=== PATIENT | female | born 1975 | race Caucasian/White ===

== ENCOUNTER 2020-11-05 14:05 | Observation (INO) | payer OTHER ==
[2020-11-05 16:37] LABS: Urine Blood Trace-intact (Negative); Urine Glucose Negative (Negative); Urine Protein Negative (Negative)
[2020-11-05] MEDS ORDERED: NA CHLORIDE 0.9% 500 ML ONE (16:46)
[2020-11-05] MEDS ORDERED: NA CHLORIDE 0.9% 1,000 ML ONE (16:46)
[2020-11-05] MEDS ORDERED: ONDANSETRON 4 MG/2 ML VIAL ONE (16:46)
[2020-11-05] MEDS ORDERED: MORPHINE 4 MG/ML SYR ONE (16:46)
[2020-11-05 17:38] LABS: Absolute Lymphocytes (CBC) 1.3 K/uL (0.7-4.9); Basophils % 0.9 % (0-1.3); Hematocrit 39.4 % (36.0-45.0); Lymphocytes % 20.5 % (15.3-44.8); MPV 8.2 fL (7.6-11.3); RBC Red Blood Cell Count 4.45 M/uL (3.86-4.86)
[2020-11-05 17:41] LABS: Protime INR 0.99
--- NOTE | 2020-11-05 17:41 | RAD REPORT ---
EXAM DESCRIPTION: US - Abdomen Exam Limited - 11/05/2020 4:55 pm CLINICAL HISTORY: ABD PAIN COMPARISON: Abdomen Pelvis W Contrast dated 10/27/2020bdomen Pelvis W Contrast dated 10/27/2020 FINDINGS: No gallstones, sludge or other abnormalities within the gallbladder lumen. There is no wal l thickening or pericholecystic fluid. Common bile duct is upper normal with no duct stone. No intrahepatic biliary dilatation. IMPRESSION: Normal gallbladder and biliary tree ultrasound.
--- NOTE | 2020-11-05 17:42 | EDPHYS ---
Physician Documentation [facility] Name: Pushpa Jackson Age: 45 yrs Sex: Female : 1975 Arrival Date: 11/05/2020 Time: 14:06 Bed 25 Private MD: Jamari Stack E ED Physician Jaron Griggs HPI: 11/05 17:34 This 45 yrs old Female presents to ER via Ambulatory with complaints of cheryl ovarian cyst, abnormal US. 17:34 The patient presents with abdominal pain right lower quadrant, abdominal distention in cheryl the upper abdomen, in the lower abdomen. Onset: The symptoms/episode began/occurred 10 day(s) ago. The patient presents with flank pain, on the right. Onset: The symptoms/episode began/occurred 10 day(s) ago. Modifying factors: The symptoms are alleviated by remaining still, the symptoms are aggravated by movement. Associated signs and symptoms: The patient has no apparent associated signs or symptoms. Severity of symptoms: At their worst the symptoms were mild, moderate, in the emergency department the symptoms are unchanged. TONAL REGULATOR: 19:59 LMP N/A - Irregular menses ld1 Historical: - Allergies: 14:25 No Known Allergies; ph - PMHx: 14:25 None; ph - PSHx: 14:25 tubal ligation; ph - Immunization history:: Client reports having NOT received the Covid vaccine. - Social history:: Smoking status: Patient denies any tobacco usage or history of. - Family history:: not pertinent. ROS: 17:34 Constitutional: Negative for fever, chills, and weight loss, Eyes: Negative for injury, cheryl pain, redness, and discharge, ENT: Negative for injury, pain, and discharge, Neck: Negative for injury, pain, and swelling, Cardiovascular: Negative for chest pain, palpitations, and edema, Respiratory: Negative for shortness of breath, cough, wheezing, and pleuritic chest pain, Back: Negative for injury and pain, : Negative for injury, bleeding, discharge, and swelling, MS/Extremity: Negative for injury and deformity, Skin: Negative for injury, rash, and discoloration, Neuro: Negative for headache, weakness, numbness, tingling, and seizure, Psych: Negative for depression, anxiety, suicide ideation, homicidal ideation, and hallucinations, Allergy/Immunology: Negative for hives, rash, and allergies, Endocrine: Negative for neck swelling, polydipsia, polyuria, polyphagia, and marked weight changes, Hematologic/Lymphatic: Negative for swollen nodes, abnormal bleeding, and unusual bruising. 17:34 Abdomen/GI: Positive for abdominal pain, of the right lower quadrant. Exam: 17:34 Constitutional: This is a well developed, well nourished patient who is awake, alert, cheryl and in no acute distress. Head/Face: Normocephalic, atraumatic. Eyes: Pupils equal round and reactive to light, extra-ocular motions intact. Lids and lashes normal. Conjunctiva and sclera are non-icteric and not injected. Cornea within normal limits. Periorbital areas with no swelling, redness, or edema. ENT: Nares patent. No nasal discharge, no septal abnormalities noted. Tympanic membranes are normal and external auditory canals are clear. Oropharynx with no redness, swelling, or masses, exudates, or evidence of obstruction, uvula midline. Mucous membranes moist. Neck: Trachea midline, no thyromegaly or masses palpated, and no cervical lymphadenopathy. Supple, full range of motion without nuchal rigidity, or vertebral point tenderness. No Meningismus. Chest/axilla: Normal chest wall appearance and motion. Nontender with no deformity. No lesions are appreciated. Cardiovascular: Regular rate and rhythm with a normal S1 and S2. No gallops, murmurs, or rubs. Normal PMI, no JVD. No pulse deficits. Respiratory: Lungs have equal breath sounds bilaterally, clear to auscultation and percussion. No rales, rhonchi or wheezes noted. No increased work of breathing, no retractions or nasal flaring. Back: No spinal tenderness. No costovertebral tenderness. Full range of motion. Skin: Warm, dry with normal turgor. Normal color with no rashes, no lesions, and no evidence of cellulitis. MS/ Extremity: Pulses equal, no cyanosis. Neurovascular intact. Full, normal range of motion. Neuro: Awake and alert, GCS 15, oriented to person, place, time, and situation. Cranial nerves II-XII grossly intact. Motor strength 5/5 in all extremities. Sensory grossly intact. Cerebellar exam normal. Normal gait. Psych: Awake, alert, with orientation to person, place and time. Behavior, mood, and affect are within normal limits. 17:34 Abdomen/GI: Inspection: abdomen appears normal, Bowel sounds: normal, Palpation: mild abdominal tenderness, in the right lower quadrant, Liver: no appreciated palpable abnormalities, Hernia: not appreciated. 19:00 ECG was reviewed by the Attending Physician. [facility] Vital Signs: 14:22 BP 116 / 74; Pulse 67; Resp 18; Temp 97.8; Pulse Ox 100% on R/A; Weight 56.7 kg; Height ph 5 ft. 3 in. (160.02 cm); 15:31 BP 120 / 77; Pulse 86; Resp 18; Pulse Ox 100% on R/A; Pain 5/10; ld1 16:45 BP 125 / 76; Pulse 88; Resp 18; Pulse Ox 100% ; ld1 17:50 BP 128 / 70; Pulse 76; Resp 18; Pulse Ox 100% ; ld1 18:50 BP 122 / 80; Pulse 76; Resp 18; Pulse Ox 100% ; ld1 19:58 BP 130 / 72; Pulse 84; Resp 18; Pulse Ox 100% ; ld1 14:22 Body Mass Index 22.14 (56.70 kg, 160.02 cm) ph MDM: 15:12 Patient medically screened. cheryl 18:58 Differential diagnosis: nonspecific abdominal pain, ovarian cyst, uterine fibroids, cheryl urinary tract infection, AAA, coronary artery disease, cholecystitis, Cholelithiasis, Dysmenorrhea, GI Bleed, Menorrhagia, non-specific abd pain, pancreatitis. Data reviewed: vital signs, nurses notes, lab test result(s), EKG, radiologic studies, CT scan, MRI, ultrasound. Data interpreted: field recorder: rate is 86 beats/min, rhythm is regular, Pulse oximetry: on room air is 100 %. Test interpretation: by ED physician or midlevel provider: ECG. Counseling: I had a detailed discussion with the patient and/or guardian regarding: the historical points, exam findings, and any diagnostic results supporting the discharge/admit diagnosis, lab results, radiology results, the need for further work-up and treatment in the hospital. 11/05 15:52 Order name: Basic Metabolic Panel [facility] 11/05 15:52 Order name: CBC with Diff [facility] 11/05 15:52 Order name: LFT's; Complete Time: 18:19 [facility] 11/05 15:52 Order name: Magnesium; Complete Time: 18:19 [facility] 11/05 15:52 Order name: NT PRO-BNP; Complete Time: 18:19 [facility] 11/05 15:52 Order name: PT-INR; Complete Time: 17:56 [facility] 11/05 15:52 Order name: Troponin (emerg Dept Use Only); Complete Time: 18:19 [facility] 11/05 15:52 Order name: XRAY Chest (1 view); Complete Time: 17:56 [facility] 11/05 15:52 Order name: Lipase; Complete Time: 18:19 [facility] 11/05 15:53 Order name: Basic Metabolic Panel; Complete Time: 18:19 [facility] 11/05 15:53 Order name: CBC with Automated Diff; Complete Time: 17:56 [facility] 11/05 16:36 Order name: Urine Dipstick-Ancillary; Complete Time: 17:13 [facility] 11/05 17:39 Order name: COVID-19 : Document "Date of Symptom Onset" if Symptomatic. [facility] 11/05 19:49 Order name: SARS-COV-2 RT PCR [facility] 11/05 15:52 Order name: EKG; Complete Time: 15:53 [facility] 11/05 15:52 Order name: Cardiac monitoring; Complete Time: 16:48 [facility] 11/05 15:52 Order name: EKG - Nurse/Tech; Complete Time: 19:01 [facility] 11/05 15:52 Order name: IV Saline Lock; Complete Time: 17:19 [facility] 11/05 15:52 Order name: Labs collected and sent; Complete Time: 17:19 [facility] 11/05 15:52 Order name: US Abdomen Limited; Complete Time: 17:56 [facility] 11/05 15:52 Order name: US Transvaginal Study (Probe); Complete Time: 17:56 [facility] 11/05 17:01 Order name: Abdomen [facility] 11/05 17:20 Order name: Cholangiogram [facility] 11/05 15:52 Order name: O2 Per Protocol; Complete Time: 15:54 [facility] 11/05 15:52 Order name: O2 Sat Monitoring; Complete Time: 15:54 [facility] 11/05 15:52 Order name: Urine Dipstick-Ancillary (obtain specimen); Complete Time: 16:47 [facility] 11/05 15:52 Order name: Urine Test (obtain specimen); Complete Time: 16:47 [facility] EC:00 Rate is 68 beats/min. Rhythm is regular. QRS [place] is Normal. [place] interval is normal. QRS cheryl interval is normal. QT interval is normal. No Q waves. T waves are Normal. No ST changes noted. Clinical impression: NSR w/ Non-specific ST/T Changes and No evidence of ischemia. Interpreted by me. Reviewed by me. Administered Medications: 17:18 Drug: Zofran (Ondansetron) 4 mg Route: IVP; Site: left antecubital; ld1 17:19 Drug: NS 0.9% 500 ml Route: IV; Rate: bolus; Site: left antecubital; ld1 17:19 Drug: NS 0.9% 1000 ml Route: IV; Rate: 125 ml/hr; Site: left antecubital; ld1 17:19 Drug: morphine 2 mg Route: IVP; Site: left antecubital; ld1 17:19 Drug: morphine 2 mg Route: IVP; Site: left antecubital; ld1 18:27 Drug: Rocephin (cefTRIAXone) 1 grams Route: IV; Rate: per protocol; Site: left ld1 antecubital; 18:27 Drug: Pepcid (famotidine) 20 mg Route: IVP; Site: left antecubital; ld1 Disposition Summary: 11/05/20 17:41 Hospitalization Ordered Hospitalization Status: Observation cheryl Provider: Roxy Monk cha Condition: Stable cheryl Problem: new cheryl Symptoms: have improved cheryl Bed/Room Type: Standard cheryl Location: [facility](11/05/20 18:31) Room Assignment: [facility]-(11/05/20 18:31) Diagnosis - Abdominal tenderness cheryl - Other ovarian cysts - 6.7 CM RIGHT ADENXA CYST cheryl Forms: - Medication Reconciliation Form cheryl - SBAR form cheryl Signatures: Dispatcher [employer] EDVeronica Briones RN RN dw Anderson, Corey, MD MD cha Hall, Patricia, RN RN Rosalinda Rosenberg RN RN ld1 Corrections: (The following items were deleted from the chart) 16:54 15:53 Abdomen Pelvis W Con+CT.RAD.BRZ ordered. EDWI EDMS 18:31 17:41 Telemetry/MedSurg (observation) cheryl 18:31 17:41 cheryl dw
--- NOTE | 2020-11-05 17:42 | ER ---
[facility] Name: Pushpa Jackson Age: 45 yrs Sex: Female : 1975 Arrival Date: 11/05/2020 Time: 14:06 Bed 25 Private MD: Jamari Stack E Diagnosis: Abdominal tenderness;Other ovarian cysts-6.7 CM RIGHT ADENXA CYST Presentation: 11/05 14:22 Chief complaint: Parent and/or Guardian states: Sent by Dr Monk for abnormal US, ph mother states that cyst was found on R ovary. Coronavirus screen: Client denies travel out of the [place] in the last 14 days. At this time, the client does not indicate any symptoms associated with coronavirus-19. Ebola Screen: No symptoms or risks identified at this time. Initial Sepsis Screen: Does the patient meet any 2 criteria? No. Patient's initial sepsis screen is negative. Does the patient have a suspected source of infection? No. Patient's initial sepsis screen is negative. Risk Assessment: Do you want to hurt yourself or someone else? Patient reports no desire to harm self or others. Onset of symptoms was November 05, 2020. 14:22 Method Of Arrival: Ambulatory 14:22 Acuity: GERARDO 3 ph COMMISSIONS COORDINATOR: 19:59 LMP N/A - Irregular menses ld1 Historical: - Allergies: 14:25 No Known Allergies; ph - PMHx: 14:25 None; ph - PSHx: 14:25 tubal ligation; ph - Immunization history:: Client reports having NOT received the Covid vaccine. - Social history:: Smoking status: Patient denies any tobacco usage or history of. - Family history:: not pertinent. Screenin:31 Abuse screen: Denies threats or abuse. Denies injuries from another. Nutritional ld1 screening: No deficits noted. Tuberculosis screening: No symptoms or risk factors identified. Fall Risk None identified. Assessment: 15:31 General: Appears in no apparent distress. comfortable, Behavior is calm, cooperative, ld1 appropriate for age. Pain: Complains of pain in right lower quadrant Pain does not radiate. Pain currently is 5 out of 10 on a pain scale. Quality of pain is described as stabbing, throbbing, Pain began 2-3 days ago. Is continuous. Neuro: Level of Consciousness is awake, alert, obeys commands, Oriented to person, place, time, situation. Cardiovascular: Capillary refill < 3 seconds Patient's skin is warm and dry. Respiratory: Airway is patent Respiratory effort is even, unlabored, Respiratory pattern is regular, symmetrical. GI: Abdomen is flat, non-distended. : Urine is clear. EENT: No signs and/or symptoms were reported regarding the EENT system. Derm: No signs and/or symptoms reported regarding the dermatologic system. Musculoskeletal: No signs and/or symptoms reported regarding the musculoskeletal system. 16:45 Reassessment: Patient appears in no apparent distress at this time. Patient is alert, ld1 oriented x 3, equal unlabored respirations, skin warm/dry/pink. 17:30 Reassessment: Patient appears in no apparent distress at this time. Patient is alert, ld1 oriented x 3, equal unlabored respirations, skin warm/dry/pink. Patient denies pain at this time. 19:58 Reassessment: Patient appears in no apparent distress at this time. No changes from ld1 previously documented assessment. Patient and/or family updated on plan of care and expected duration. Pain level reassessed. Patient is alert, oriented x 3, equal unlabored respirations, skin warm/dry/pink. Vital Signs: 14:22 BP 116 / 74; Pulse 67; Resp 18; Temp 97.8; Pulse Ox 100% on R/A; Weight 56.7 kg; Height ph 5 ft. 3 in. (160.02 cm); 15:31 BP 120 / 77; Pulse 86; Resp 18; Pulse Ox 100% on R/A; Pain 5/10; ld1 16:45 BP 125 / 76; Pulse 88; Resp 18; Pulse Ox 100% ; ld1 17:50 BP 128 / 70; Pulse 76; Resp 18; Pulse Ox 100% ; ld1 18:50 BP 122 / 80; Pulse 76; Resp 18; Pulse Ox 100% ; ld1 19:58 BP 130 / 72; Pulse 84; Resp 18; Pulse Ox 100% ; ld1 14:22 Body Mass Index 22.14 (56.70 kg, 160.02 cm) ph ED Course: 14:06 Patient arrived in ED. am2 14:07 Jamari Stack MD is Private Physician. am2 14:24 Triage completed. ph 14:25 Arm band placed on Patient placed in waiting room, Patient notified of wait time. ph 15:02 Rosalinda Rosenberg, MONIQUE is Primary Nurse. ld1 15:12 Jaron Griggs MD is Attending Physician. cheryl 15:31 Patient has correct armband on for positive identification. Placed in gown. Bed in low ld1 position. Call light in reach. Side rails up X2. Pulse ox on. NIBP on. Door closed. Noise minimized. Warm blanket given. 15:31 No provider procedures requiring assistance completed. ld1 16:14 XRAY Chest (1 view) In Process Unspecified. EDMS 16:52 US Transvaginal Study (Probe) In Process Unspecified. EDMS 16:55 US Abdomen Limited In Process Unspecified. EDMS 17:39 Roxy Monk MD is Hospitalizing Provider. cheryl 18:27 COVID-19 : Document "Date of Symptom Onset" if Symptomatic. Sent. ld1 21:05 Patient admitted, IV remains in place. intact, bleeding controlled, No redness/swelling ld1 at site. Administered Medications: 17:18 Drug: Zofran (Ondansetron) 4 mg Route: IVP; Site: left antecubital; ld1 17:19 Drug: NS 0.9% 500 ml Route: IV; Rate: bolus; Site: left antecubital; ld1 17:19 Drug: NS 0.9% 1000 ml Route: IV; Rate: 125 ml/hr; Site: left antecubital; ld1 17:19 Drug: morphine 2 mg Route: IVP; Site: left antecubital; ld1 17:19 Drug: morphine 2 mg Route: IVP; Site: left antecubital; ld1 18:27 Drug: Rocephin (cefTRIAXone) 1 grams Route: IV; Rate: per protocol; Site: left ld1 antecubital; 18:27 Drug: Pepcid (famotidine) 20 mg Route: IVP; Site: left antecubital; ld1 Outcome: 17:41 Decision to Hospitalize by Provider. cheryl 19:59 Condition: stable ld1 21:04 [facility] by nurse, via wheelchair, room 271, with chart, Report ld1 called to \\T\\D RN 21:05 Patient left the ED. ld1 Signatures: Dispatcher [employer] Jaron Alavrez MD MD cha Hall, Patricia, RN RN ph Moreno, Amanda am2 Dibbern, Lauren, RN RN ld1
--- NOTE | 2020-11-05 17:42 | RAD REPORT ---
EXAM DESCRIPTION: RAD - Chest Single View - 11/05/2020 4:14 pm CLINICAL HISTORY: COUGH COMPARISON: None TECHNIQUE: AP portable chest image was obtained 11/05/2020 4:14 pm . FINDINGS: Lungs are clear. Heart and vasculature are normal. No measurable pleural effusion and no p neumothorax. No acute bony abnormality seen. No acute aortic findings suspected. IMPRESSION: No acute cardiopulmonary process.
--- NOTE | 2020-11-05 17:47 | RAD REPORT ---
EXAM DESCRIPTION: US - Transvaginal Study Probe - 11/05/2020 4:52 pm CLINICAL HISTORY: MASS, RIGHT ADENEXA;Abd pain COMPARISON: Abdomen Pelvis W Contrast dated 10/27/2020 TECHNIQUE: Endovaginal sonography was performed. FINDINGS: Endometrial stripe is 3 mm with no mass, polyp or focal endometrial canal abnormality. No myometrial mass lesion. No blood or fluid in the cul de sac. A 6.5 centimeter thin-walled right adnexal cyst is present. There is reverberation artifact and some scattered internal echogenicity. No mural nodule or thickened septation. No change in size since the October 27 examination. No cyst rupture or hemorrhage identifiable. A thin rim of ovarian tissue is seen along the periphery. Definitive blood flow could not be demonstrated. This is not uncommon when ther e is only a thin rim of tissue visible. Left ovary is identified, normal in size and shows normal blood flow within the stroma. No left adnex al abnormality. IMPRESSION: Large 6.5 cm right ovarian/paraovarian cyst showing no hemorrhage or rupture findings. N o identifiable changes from October 27 CT imaging.
[2020-11-05 18:03] LABS: ALT/SGPT 30 U/L (12-78); AST/SGOT 19 U/L (15-37); Alkaline Phosphatase 107 U/L (45-117); BUN Blood Urea Nitrogen 14 mg/dL (7-18); Bicarbonate 30 mmol/L (21-32); Bilirubin Direct < 0.1 mg/dL (0-0.2); Bilirubin Total 0.3 mg/dL (0.2-1.0); Glucose Level 90 mg/dL (74-106); Lipase 169 U/L (73-393); Magnesium 2.3 mg/dL (1.8-2.4); NT PRO-BNP 26 pg/mL (<125); Potassium 3.9 mmol/L (3.5-5.1); Protein, Total 8.1 g/dL (6.4-8.2); Sodium Level 140 mmol/L (136-145); Troponin (Emerg Dept Use Only) < 0.02 ng/mL (0.0-0.045)
[2020-11-05] MEDS ORDERED: CEFTRIAXONE/SWI 1gm 1 GM/10 ML SYR ONE (18:12)
[2020-11-05] MEDS ORDERED: FAMOTIDINE 20 MG/2 ML VIAL IV ONE (18:12)
--- NOTE | 2020-11-05 18:42 | RAD REPORT ---
EXAM DESCRIPTION: MRI - Cholangiogram - 11/05/2020 6:07 pm CLINICAL HISTORY: Abdominal pain COMPARISON: Gallbladder ultrasound sparing, CT study same date TECHNIQUE: Axial and coronal heavily T2 weighted sequences were obtained. Coronal T2 HASTE fat satur ation static and coronal multiplane reconstruction imaging generated and reviewed. Horizontal and félix tical axis rotational views obtained using maximum intensity projection (MIP) protocol. FINDINGS: No gallbladder abnormality identifiable. Common bile duct is normal diameter with no duct stone, stricture, mass or other focal abnormality seen. Pancreatic duct is unremarkable. No intrahepa tic biliary tree dilatation. IMPRESSION: Unremarkable MRCP.
--- NOTE | 2020-11-05 18:50 | RAD REPORT ---
EXAM DESCRIPTION: CT - Abdomen Pelvis W Contrast - 11/05/2020 6:34 pm CLINICAL HISTORY: ABD PAIN COMPARISON: Abdomen Pelvis W Contrast dated 10/27/2020 TECHNIQUE: Biphasic, helical CT imaging of the abdomen and pelvis was performed following 100 ml non -ionic IV contrast. Oral contrast was given. All CT scans are performed using dose optimization technique as appropriate and may include automated exposure control or mA/KV adjustment according to patient size. FINDINGS: No suspicious findings in the lung bases. The liver, spleen, and pancreas show no suspicious findings. Gallbladder and biliary tree are also wi thout suspicious finding. Symmetric renal function is seen with no hydronephrosis or suspicious renal mass. No pyelonephritis o r acute parenchymal process. No bladder abnormalities. No adrenal abnormalities. No gastric dilatation or wall thickening. No dilated small bowel loop or focal small bowel finding. M oderate stool volume seen throughout the knee colon from cecum through splenic flexure. No measurable diverticulosis or active left-sided colon process. No free air, free fluid or inflammatory stranding . No hernia or bulky lymphadenopathy. There is a small 11 millimeter left ovarian cyst or follicle. No dominant or worrisome left ovarian finding. Left ovary is not clearly different from comparison. I n the posterior right adnexa there is again noted to be a 6.5 centimeter homogeneous cystic mass. No cyst rupture or hemorrhage findings. No change from the October 27 CT study. No new pelvic finding is identifiable. No suspicious bony findings. No hip joint or skeletal muscle abnormality identifiable. IMPRESSION: Contrast enhanced CT abdomen and pelvis showing no acute or emergent finding. The large 6.5 cm right adnexal cystic mass in the small left ovarian cysts or follicles have not martinez ged since October 27.
[2020-11-05] MEDS ORDERED: MORPHINE 4 MG/ML SYR IV PRN (20:37)
[2020-11-05] MEDS ORDERED: ONDANSETRON 4 MG/2 ML VIAL IV PRN (20:37)
[2020-11-05] MEDS ORDERED: ACETAMINOPHEN 325 MG TABLET PO PRN (20:49)
[2020-11-05] MEDS: D5 0.45 NS 1,000 ML IV SCH (21:00)
[2020-11-05] MEDS: FAMOTIDINE 20 MG/2 ML VIAL IV SCH (21:00)
[2020-11-05 21:15] VITALS: BMI 22.1
[2020-11-06 05:26] LABS: Absolute Lymphocytes (CBC) 1.3 K/uL (0.7-4.9); Basophils % 0.3 % (0-1.3); Hematocrit 33.3 % (36.0-45.0); Lymphocytes % 24.2 % (15.3-44.8); MPV 8.5 fL (7.6-11.3); RBC Red Blood Cell Count 3.71 M/uL (3.86-4.86)
[2020-11-06 05:35] LABS: ALT/SGPT 23 U/L (12-78); AST/SGOT 14 U/L (15-37); Albumin 3.1 g/dL (3.4-5.0); Alkaline Phosphatase 79 U/L (45-117); BUN Blood Urea Nitrogen 9 mg/dL (7-18); Bicarbonate 31 mmol/L (21-32); Bilirubin Direct < 0.1 mg/dL (0-0.2); Bilirubin Total 0.3 mg/dL (0.2-1.0); Glucose Level 106 mg/dL (74-106); Lipase 117 U/L (73-393); Potassium 3.9 mmol/L (3.5-5.1); Protein, Total 6.1 g/dL (6.4-8.2); Sodium Level 142 mmol/L (136-145)
[2020-11-06] MEDS ORDERED: NEOSTIGMINE 1 MG/ML -5 ML ONE (06:00)
[2020-11-06] MEDS ORDERED: FENTANYL CITR 100 MCG/2 ML ONE (06:00)
[2020-11-06] MEDS ORDERED: GLYCOPYRROLATE 0.2 MG/ML SYR ONE (06:00)
[2020-11-06] MEDS ORDERED: propofoL 200 MG/20 ML VIAL IV ONE (06:00)
[2020-11-06] MEDS ORDERED: LIDOCAINE 1% MPF 5 ML VIAL ONE (06:00)
[2020-11-06] MEDS ORDERED: MIDAZOLAM HCL 2 MG/2 ML INJ ONE (06:00)
[2020-11-06] MEDS ORDERED: dexAMETHasone 4 MG/ML VIAL ONE (06:00)
[2020-11-06] MEDS ORDERED: KETOROLAC 30 MG/ML INJ ONE (06:01)
[2020-11-06] MEDS ORDERED: ROCURONIUM 50 MG/5 ML VIAL IV ONE (06:01)
--- NOTE | 2020-11-06 06:19 | EKG ---
Test Date: 2020-11-05 Test Time: 18:48:27 Stationary Engineer Refrigeration: GALDINO MEASUREMENT RESULTS: Intervals: Rate: 68 MO: 170 QRSD: 82 QT: 386 QTc: 410 [place]: P: 56 MO: 170 QRS: 62 T: 34 INTERPRETIVE STATEMENTS: Normal sinus rhythm Normal ECG Compared to ECG 11/19/2018 14:31:53 Sinus bradycardia no longer present Right-axis deviation no longer present Electronically Signed On 11-06-20 06:17:45 CDT by Jatinder Green
[2020-11-06] MEDS: BUPIVACAINE 0.25% PF 30 ML VIAL ONE ×2 (06:23→07:15)
[2020-11-06] MEDS ORDERED: Ringers Lactate 1,000 ML IV ONE ×2 (06:29→08:09)
[2020-11-06] MEDS ORDERED: MORPHINE 10 MG/ML VIAL ONE (07:44)
[2020-11-06] MEDS ORDERED: MEPERIDINE HCL 50 MG/ML IM PRN (08:17)
[2020-11-06] MEDS ORDERED: IBUPROFEN 600 MG TAB PO PRN (08:17)
[2020-11-06] MEDS ORDERED: PROMETHAZINE INJ 25 MG/ML AMP IV PRN (08:17)
[2020-11-06] MEDS ORDERED: HYDROCODONE/APAP 5/325 MG TAB PO PRN (08:17)
[2020-11-06] MEDS ORDERED: ONDANSETRON 4 MG (ODT) TAB PO PRN (08:17)
--- NOTE | 2020-11-06 08:25 | P.BOP ---
Preoperative diagnosis: pelvic pain, right ovarian cyst Postoperative diagnosis: same Primary procedure: laparoscopy RSO, left salpingectomy, pelvic washings Secondary procedure: removal of right paraovarian cyst Frit Coater: Sole Erickson Estimated blood loss: min Specimen: right ovary with cyst and bilat tubes, washings,right para ovarian cyst Findings: same as above, dilated non inflammed appendix Anesthesia: General Complications: None Transferred to: Recovery Room Condition: Good
[2020-11-06] MEDS: D5 0.45 NS 1,000 ML IV SCH (10:27)
[2020-11-06 11:20] VITALS: O2SAT 100
[2020-11-06] MEDS: FAMOTIDINE 20 MG/2 ML VIAL IV SCH (12:16)
[2020-11-06 14:35] VITALS: TEMP 98
[2020-11-06 16:32] VITALS: BP 121/75
--- NOTE | 2020-11-06 22:56 | OP ---
Date of Procedure: 11/06/2020 Surgeon: Roxy Monk MD [employer] Hands: Peggy Johnson. Preoperative Diagnoses: Pelvic pain, right ovarian cyst. Postoperative Diagnoses: Pelvic pain, right ovarian cyst. Procedures Performed: Laparoscopy, right salpingo-oophorectomy, left salpingectomy, pelvic washings, and removal of right paraovarian cyst. Anesthesia: General endotracheal. Specimens: Right ovary with cyst, bilateral tubes, pelvic washings, right paraovarian cyst. Estimated Blood Loss: Minimal. Complications: No complications. Drains: No drains. Condition: Stable. Findings: Large right ovarian mass and small paraovarian cyst. Appendix slightly dilated, but no ma ss noted or inflammation. Upper abdomen unremarkable. Entire omentum unremarkable. No other perito anel masses or irregularities noted. Gallbladder and liver are unremarkable. Uterus small with tiny leiomyoma. Right ovary completely unremarkable. Both tubes also unremarkable. Disposition: The patient's condition stable, taken to recovery in stable fashion. Indications: The patient is a 45-year-old female, who presented with pelvic pain and right 6.7 cm ov rosaura cyst, evaluated in the office and then in the hospital for this mass and vomiting. Please refe r to the H and P for details. Given the long-standing pain that was unrelenting and without any othe r etiology as the patient was in the ER yesterday with a significant amount of pain, she was consente d for laparoscopy, pelvic washings, right salpingo-oophorectomy, and left salpingectomy, and procedur es as needed. The procedure was done after the patient consented. Her sister was also present by he r side and she oversaw her consent process. The procedure was done in urgent fashion due to the pres ence of pain and the level of pain. Procedure In Detail: The patient was taken back to OR and placed in supine fashion on the operating table. No indicated antibiotics per ACOG guidelines. Placed in supine fashion on the operating tabl e. General anesthesia was given. Placed in dorsal lithotomy position. Arms were tucked by the side . Pelvic exam performed. Adnexal mass palpable. Abdomen, vulva, vagina, and perineum were prepped and draped in a sterile fashion. Chery was placed to drain the bladder and diagnostic uterine manipu lator placed into the uterus. After this was draped, 1 cm infraumbilical incision made with a scalpe l using the open laparoscopy technique. Fascia was incised, tagged with 0 Vicryl sutures, peritoneum entered sharply, S-retractors were placed, Maksim introduced, site of entry was checked and was unre markable after adequate ablation. Upper abdominal surface was described above in the findings. The patient was placed in Trendelenburg and the pelvic mass was usually notable, did not appear to have a twist or a torsion, did not have any compromise to it blood supply, was visible at the time and righ t paraovarian mass was seen. The appendix was described above. Two 5 mm left and right suprapubic ports were placed under direct vision. Marcaine was injected at t he fascia and the skin at all sites. After pelvic washings were done and retrieved, sent for permanent pathology. Then, the procedure was started. A 5 mm LigaSure was taken. The tube on the left side was taken down from the distal end t o the proximal end and placed in the anterior cul-de-sac and then the right tube was removed. Dissec tion was performed to take the utero-ovarian ligament and the infundibulopelvic ligament including al l the paraovarian tissues. Immediately next to the pedicle of the right ovarian vessels, there was a mucinous cyst about 0.5 cm. This was carefully removed by opening up the broad ligament laterally a nd taking this down, handed out for permanent pathology also as well. No other masses or excrescence s were present on the peritoneum. Looking for any peritoneal implants in case this was a borderline tumor or malignant tumor. The ureters were completely undisplaced and had no mechanical, electrical, or thermal injuries to the m at the end of the case. The pelvic cavity was thoroughly irrigated and suction. The specimen was placed in the EndoCatch bag through the umbilical port and 10 camera switched to a 5 in order to retr ieve the specimen. After the 5 ports were pulled out without any problems, then the umbilical trocar was removed after desufflating the gas. The patient was leveled out. Then, the incision at the umb ilicus was extended to at least 4 cm in order for me to retrieve the pelvic mass. The carefully lapa roscopic needle was placed through the open bag. The bag was kept open with the help of 2 Radha clam ps and 2 hemostats, so it could be stabilized without any spillage. The drainage was done with the l aparoscopic needle and then the bag was removed with the specimen without any problems and handed off for permanent pathology. All the contaminated areas were handed off. Fascia was closed with the he lp of 0 Vicryl in a continuous running fashion at the umbilicus and all the skin closure with interru pted 4-0 Vicryl sutures, at the longer incision continuous running 4-0 Vicryl. The manipulator and F oley removed. Instrument, needle, and sponge counts correct at the end of the case. The patient ebonie erated the procedure well. She was recovered and taken to PACU in stable condition. Findings discus sed with her and sister after the patient had consented preoperatively. She will see us back in 1 we ek. She will be discharged home today. The patient will also follow up with Dr. Antunez on the issue of vomiting and a possible enlarged common bile duct. BRIDGETTE/PERNELL Voice ID: [id number] Report ID: [id number]
== END 2020-11-06 17:25 | disposition home or self-care (01) ==
LOC: ER 14:05 → ERHOLD 17:42 → 2ND-WC 19:58
PROVIDERS: ADMIT Obstetrics & Gynecology; ATTEND Obstetrics & Gynecology
PROC: 0UT74ZZ Resection of Bilateral Fallopian Tubes, Percutaneous Endoscopic Approach (ICD-10-PCS; 2020-11-06)
PROC: 0UT04ZZ Resection of Right Ovary, Percutaneous Endoscopic Approach (ICD-10-PCS; principal; 2020-11-06 07:00)
DX: R10.2 Pelvic and perineal pain (principal); N83.201 Unspecified ovarian cyst, right side; N83.8 Other noninflammatory disorders of ovary, fallopian tube and broad ligament; Z20.822 Contact with and (suspected) exposure to COVID-19
CPT/HCPCS: 93005; 85025 ×2; 80048 ×2; 36415; 88108; 83735; 85610; 80076 ×2; 88305 ×3; 81003; 84484; 83690 ×2; 83880; 74177; 71045; 74181; 76705; 76830; 96375; 96374; 99285; 58661; U0003; Q9967; J2704; J1100; J2550; J2250; J3010; J2175; J2710; J0696; G0378 ×4; J7799 ×2; J7120 ×2; J7040; J7030; J2405; 88304